=== PATIENT | male | born 1960 | race Caucasian/White ===

== ENCOUNTER 2017-03-25 08:30 | Inpatient (IN) | payer BC ==
[~2017-03-25] VITALS: Ht 160 cm; Wt 74.6 kg
[~2017-03-25 08:30] MED LIST: CELEXA10 MG PO; CIALIS5 MG PO; Flexeril PO; LOTREL 10/41 CAPSULE PO; MOTRIN800 MG PO; PERCOCET 5/31 TABLET PO; Percocet 7.5/325,End PO; VITAMIN B COMP1 EACH PO; VITAMIN D31000 UNIT PO
[2017-04-25] MEDS ORDERED: LEXAPRO10 MG PO (09:47)
[2017-04-25] MEDS ORDERED: LYRICA50 MG PO (09:47)
[2017-04-25] MEDS ORDERED: ULTRAM50 MG PO (09:48)
[2017-04-25] MEDS ORDERED: ROXICODONE5 MG PO (09:48)
[2017-04-29] MEDS ORDERED: IRON325 M1 PO (05:59)
[2017-04-29 06:06] VITALS: BP 159/88
[2017-04-29 06:42] LABS: BILIRUBIN NEGATIVE; BLOOD NEGATIVE; COLOR YELLOW ((YELLOW)); GLUCOSE (STRIP) NEGATIVE; KETONES NEGATIVE; LEUKOCYTES NEGATIVE; NITRITE NEGATIVE; PROTEIN (STRIP) NEGATIVE; SPECIFIC GRAVITY 1.016 (1.000-1.030); UROBILINOGEN 0.2 MG/DL (0.2-1.0)
[2017-04-29 06:43] LABS: ADD MIUA? NO
[2017-04-29 06:53] LABS: ANION GAP 11 MEQ/L (2-14); CHLORIDE 104 MEQ/L (99-109); GFR ESTIMATE (CALCULATED) > 59 mL/min/; GLUCOSE 98 mg/dL (70-99); SAMPLE HEMOLYSIS CHECK 0; SAMPLE ICTERIC CHECK 0; SAMPLE LIPEMIA CHECK 0; SODIUM 141 MEQ/L (136-147); UREA NITROGEN (BUN) 11 mg/dL (9-23)
[2017-04-29 07:04] LABS: AMPHETAMINES QUANT VALUE 0 NG/ML; BARBITUATES QUANT VALUE 0 NG/ML; BENZODIAZEPINES QUANT VALUE 0 NG/ML; BENZODIAZEPINES, URINE SCREEN Negative (200 ng/mL); MARIJUANA QUANT VALUE 0 NG/ML; OPIATES QUANTITATIVE VALUE 0 NG/ML; PHENCYCLIDINE QUANT VALUE 0 NG/ML
[2017-04-29 14:48] VITALS: BP 133/74
[2017-04-29 16:35] VITALS: BP 154/79
[2017-04-29 19:58] VITALS: BP 143/74
[2017-04-29 23:34] VITALS: BP 118/67
[2017-04-30 04:23] VITALS: BP 129/69
[2017-04-30 07:51] VITALS: BP 161/77
[2017-04-30] MEDS ORDERED: FLEXERIL5 MG PO (08:26)
[2017-04-30] MEDS ORDERED: HYDROCODON-ACE1 EAC9 PO (08:26)
== END 2017-04-30 10:08 | disposition home or self-care (01) | DRG 460 ==
LOC: 2SOUTH 08:30 → ENRESERV 04-28 22:22 → 2SOUTH 04-29 05:20 → 3EAST 04-29 05:20 → 2SOUTH 04-29 09:05 → ENRESERV 04-29 12:36 → 2SOUTH 04-29 14:11 → 3EAST 04-29 14:34 → 2SOUTH 04-29 15:25 → 3EAST 04-30 10:08
PROVIDERS: Neurological Surgery
DX: M51.37 Other intervertebral disc degeneration, lumbosacral region (principal); K59.00 Constipation, unspecified; Z98.1 Arthrodesis status; Z87.891 Personal history of nicotine dependence
CPT/HCPCS: 72020; 76000; 80048; 80306 90; 81003; J0131; J0690; J1100; J1170; J1885; J2250; J2405; J2710; J3010; J3480